=== PATIENT | male | born 1975 | race Caucasian/White ===

== ENCOUNTER 2019-07-04 05:55 | Day surgery (SDC) | payer OTHER ==
[2019-06-29 12:02] LABS: CALC OSMOLALITY 280 mosm/kg (275-300); CALCIUM 9.3 mg/dL (8.5-10.1); CARBON DIOXIDE 28.3 mmol/L (21.0-32.0); CHLORIDE - SERUM 105 mmol/L (98-107); GLUCOSE 101 mg/dL (74-106); POTASSIUM - SERUM 4.3 mmol/L (3.5-5.1); SODIUM 140 mmol/L (136-145); UREA NITROGEN 17 mg/dL (7-18); eGFR NON AFRICAN AMERICAN 86 mL/min (90-120)
[2019-06-29 12:47] LABS: BASOPHILS 0.3 % (0-2); EOSINOPHILS 1.3 % (0-7); HEMATOCRIT 44.2 % (42.0-54.0); HEMOGLOBIN 15.1 g/dL (13.5-17.5); IMMATURE GRANULOCYTES 0.2 % (0-5); LYMPHOCYTES 32.5 % (15-50); MCH 29.5 pg (26.0-34.0); MCHC 34.2 g/dL (31.0-37.0); MCV 86.5 fL (80.0-100.0); MEAN PLATELET VOLUME 10.9 fL (7.4-10.4); MONOCYTES 8.2 % (2-11); NEUTROPHILS 57.5 % (40-80); PLATELET COUNT 248 10x3/uL (130-400); RBC 5.11 10x6/uL (4.20-6.10); RDW 12.7 % (11.5-14.5); WBC 6.2 10x3/uL (4.8-10.8)
[~2019-07-04] VITALS: Ht 185.4 cm; Wt 97.7 kg
[~2019-07-04 05:55] MED LIST: LOTENSIN 10 MG10 MG PO
[2019-07-04 06:42] VITALS: BP 124/80; Ht 185.4 cm; Wt 97.7 kg
--- NOTE | 2019-07-04 11:58 | NUR ---
1147-REC'D FROM RR. AWAKE AND ALERT,DRESSING AND SLING TO LEFT ARM IN PLACE-CDI. ABLE TO WIGGLE DIGITS. CAP REFILL WNL.VSS. SPOUSE AT BEDSIDE, CL IN EASY REACH. TOLERATING ICE CHIPS.
--- NOTE | 2019-07-04 13:07 | NUR ---
1245 IV REMOVED. JAMIE AKSHAT ORDERED AND PT VOIDED TWICE. INSTRUCTIONS GIVEN AND DENIES PAIN.
== END 2019-07-04 13:35 | disposition home or self-care (01) ==
LOC: D.OPS 05:55 → D.PAN 10:45 → D.OPS 12:20
PROVIDERS: ATTEND Orthopaedic Surgery
DX: M65.812 Other synovitis and tenosynovitis, left shoulder (principal); M19.012 Primary osteoarthritis, left shoulder; M25.812 Other specified joint disorders, left shoulder; M75.102 Unspecified rotator cuff tear or rupture of left shoulder, not specified as traumatic; T14.8XXA Other injury of unspecified body region, initial encounter; I10 Essential (primary) hypertension